=== PATIENT | female | born 1980 | race Caucasian/White ===

== ENCOUNTER 2019-09-01 08:55 | Emergency (ER) | payer BC, SELFPAY ==
--- NOTE | ~2019-09-01 | XR_ITS ---
EXAMINATION: XR chest 2V EXAM DATE: 09/01/2019 09:34 INDICATION: Chest pain, right upper quadrant pain. TECHNIQUE: Frontal and lateral projections of the chest obtained and reviewed. There is no prior josephine dy for comparison. FINDINGS: The lungs are clear. There are no pleural effusions. The cardiomediastinal silhouette is within normal limits. There is no pneumothorax suspected. The bones and soft tissues are unremarkab le. IMPRESSION: No acute cardiopulmonary findings. Reviewed, dictated and finalized at location B. T MANAGER
[2019-09-01 08:58] VITALS: BP 147/98; PULSE 90; RESP 18; TEMP 36.8; O2SAT 100
--- NOTE | 2019-09-01 09:02 | ECG_ITS ---
Measurements Intervals [place] Rate: 80 P: 56 DE: 145 QRS: 39 QRSD: 94 T: 15 QT: 355 QTc: 411 Interpretive Statements SINUS RHYTHM NORMAL ECG Electronically Signed On 09-01-2019 15:58:55 BASEBALL PITCHER by Justin Busch D.O.
--- NOTE | 2019-09-01 09:05 | ED.CHESTPAIN ---
HPI - Chest Pain General Chief Complaint: Chest Pain Stated Complaint: back pain/nausea Time Seen by Provider: 09/01/19 09:04 Source: patient Mode of arrival: ambulatory Limitations: no limitations History of Present Illness HPI narrative: Pt is a 38 y/o female who presents to the ED with c/o constant 6/10 rt CP that radiates from her rt shoulder and rt breast that woke her up this morning at 4AM. She reports associated nausea and sweats. Pt notes that she has been having sinus pressure and drainage for 6 days. She denies SOB or any relieving factors. complaint: chest pain Onset (ago): hour(s) (5) Timing of current episode: constant Pain location: right chest Pain radiation: right shoulder and other (rt breast) Pain scale (0-10): 6 Relieving factors: nothing Associated symptoms: nausea and diaphoresis Related Data Allergies Allergy/AdvReac Type Severity Reaction Status Date / Time Sulfa (Sulfonamide Allergy Intermediate Rash Verified 09/17/12 19:16 Antibiotics) Review of Systems Review of Systems: All systems reviewed & are unremarkable except as noted in HPI and below Constitutional: Constitutional: Reports other (sweats) ENT: Reports nasal discharge and Reports sinus pressure Cardiovascular: Cardiovascular: Reports chest pain Respiratory: Respiratory: Denies dyspnea Gastrointestinal: Gastrointestinal: Reports nausea Musculoskeletal: Musculoskeletal: Reports arthralgias (rt shoulder) [facility] Past Medical History Medical History (Updated 09/01/19 @ 10:29 by Neel Braun MD) HLD (hyperlipidemia) HTN (hypertension) Kidney stones Migraine Seasonal allergies Surgical History Surgical History (Updated 09/01/19 @ 09:38 by Aldo Sylvester) No significant past surgical history Social History Social History (Updated 09/01/19 @ 09:39 by Aldo Sylvester) Smoking status: Never smoker Exam Narrative: Exam Narrative: GENERAL: Well-appearing, well-nourished, and in no acute distress. HEAD: Normocephalic, atraumatic. EYES: PERRLA and EOMI. ENT: Nares clear, no rhinorrhea or epistaxis. Mucous membranes moist. NECK: Supple. CHEST: Clear to auscultation. No respiratory distress. HEART: Regular rate and rhythm. No murmur heard. Normal peripheral pulses. ABDOMEN: Soft, non tender, non distended, normal active bowel sounds. EXTREMITIES: Normal range of motion. No edema. SKIN: Warm, dry, no rash. NEURO: No focal deficits. Alert and oriented x3. PSYCH: Normal mood and affect. Course Course Emergency Course: Discussed lab, chest x-ray and EKG findings with the patient. At this time her pain appears to be more pleuritic in nature. Advised her to take naproxen as prescribed. She is not having any fever or chills and cough is nonproductive in nature it could be viral bronchitis Vital Signs Vital signs: Vital Signs Temperature 36.8 C 09/01/19 08:58 Pulse Rate 90 09/01/19 08:58 Respiratory Rate 18 09/01/19 08:58 Blood Pressure 147/98 H 09/01/19 08:58 Pulse Oximetry 100 09/01/19 08:58 Temperature 36.8 C 09/01/19 08:58 Pulse Rate 75 09/01/19 09:57 Respiratory Rate 15 09/01/19 09:57 Blood Pressure 140/88 09/01/19 09:57 Pulse Oximetry 100 09/01/19 09:57 MDM - Chest Pain Lab Data Result diagrams: 09/01/19 09:11 09/01/19 09:11 Labs: Lab Results 09/01/19 09/01/19 09/01/19 Range/Units 09:11 09:11 09:11 WBC 10.3 H (4.5-10.0) K/mm3 RBC 4.72 (4.2-5.4) M/mm3 Hgb 13.5 (12.0-15.0) g/dL Hct 40.8 (37.0-47.0) % MCV 86.4 (80-100) fl MCH 28.6 (26-34) pg MCHC 33.1 (32-36) g/dl RDW 12.7 (11.5-14.5) % Plt Count 274 (150-375) k/mm3 MPV 9.2 (7.4-10.4) fl Immature Gran % (Auto) 0.4 (0-0.5) % Neut % (Auto) 68.3 (45.5-73.1) % Lymph % (Auto) 24.2 (18.3-44.2) % Millard % (Auto) 5.0 (2.6-8.5) % Eos % (Auto) 1.5 (0-4.4) % Baso % (Auto) 0.6 (0.2-1.2) % Lymph # (Auto)
[2019-09-01] MEDS: ASPIRIN 81 MG CHEWABLE TABLET 324 MG PO (09:15)
[2019-09-01 09:17] LABS: Basophils Absolute Auto 0.1 K/mm3 (0.0-0.1); Basophils Percent Auto 0.6 % (0.2-1.2); Eosinophils Absolute Auto 0.2 K/mm3 (0-0.3); Eosinophils Percent Auto 1.5 % (0-4.4); Hematocrit 40.8 % (37.0-47.0); Hemoglobin 13.5 g/dL (12.0-15.0); Immature Granulocyte Absolute 0.04 K/mm3 (0.00-0.031); Immature Granulocyte Percent A 0.4 % (0-0.5); Lymphocytes Absolute Auto 2.48 K/mm3 (0.9-3.2); Lymphocytes Percent Auto 24.2 % (18.3-44.2); Mean Corpuscular HGB Conc 33.1 g/dl (32-36); Mean Corpuscular Hemoglobin 28.6 pg (26-34); Mean Corpuscular Volume 86.4 fl (80-100); Mean Platelet Volume 9.2 fl (7.4-10.4); Monocytes Absolute Auto 0.5 K/mm3 (0.1-0.6); Neutrophils Percent Auto 68.3 % (45.5-73.1); Platelet Count Result 274 k/mm3 (150-375); Red Blood Count 4.72 M/mm3 (4.2-5.4); Red Cell Distribution Width 12.7 % (11.5-14.5); White Blood Count 10.3 K/mm3 (4.5-10.0)
[2019-09-01 09:28] LABS: Partial Thromboplastin Time 28.4 SECONDS (22.3-36.8); Prothrombin Time 12.4 Seconds (11.1-14.7)
[2019-09-01 09:29] LABS: Blood Urea Nitrogen 17 mg/dL (7-17); Calcium 9.2 mg/dL (8.4-10.2); Carbon Dioxide 27 mmol/L (22-30); Chloride 100 mmol/L (98-107); Estimated CRCL calculation 83 ml/min; Estimated Glomerular Filt Rate > 60; Glucose 99 mg/dL (65-105); Sodium 138 mmol/L (137-145)
[2019-09-01 09:40] LABS: Troponin I < 0.012 ng/mL (0.000-0.034)
[2019-09-01 09:57] VITALS: BP 140/88; PULSE 75; RESP 15; O2SAT 100
[2019-09-01 10:43] VITALS: BP 134/80; PULSE 78; RESP 19; O2SAT 98
== END 2019-09-01 11:05 | disposition home or self-care (01) ==
PROVIDERS: Emergency Provider Family Medicine
DX: R07.89 Other chest pain (principal); E78.5 Hyperlipidemia, unspecified; I10 Essential (primary) hypertension; Z87.442 Personal history of urinary calculi
CPT/HCPCS: 36415; 71046; 80048; 84484; 85025; 85610; 85730; 93005; 99284; A9270

== ENCOUNTER 2019-12-13 13:16 | Outpatient (CLI) | payer BC, SELFPAY | END 2019-12-13 13:17 | disposition home or self-care (01) | PROVIDERS: Visit Provider Dietitian, Registered | DX: Z00.00 Encounter for general adult medical examination without abnormal findings (principal); K58.9 Irritable bowel syndrome, unspecified | CPT/HCPCS: 36415 ==

== ENCOUNTER 2021-09-03 12:37 | Outpatient (CLI) | payer BC, SELFPAY ==
--- NOTE | ~2021-09-03 | MR_ITS ---
EXAMINATION: MR cervical spine wo con DATE: 09/03/2021 14:08 INDICATION: Neck pain. TECHNIQUE: Magnetic resonance imaging (MRI) of the cervical spine was performed without intravenous c ontrast. Sequences included sagittal T2-weighted FSE, sagittal T2-weighted FS FSE, sagittal T1-weight ed FSE, axial MERGE, and axial T2-weighted FSE. COMPARISON: None FINDINGS: Bone alignment is normal. Vertebral body heights are normal. There is mildly decreased disc height at C5-C6. The spinal cord signal intensity is normal. The following disc levels are specifica lly discussed: C2-C3: The disc does not extend beyond the endplate margin. There is no uncovertebral joint osteoarth ritis. There is no facet joint osteoarthritis. There is no neural foraminal stenosis. There is no marvin tral canal stenosis. C3-C4: The disc does not extend beyond the endplate margin. There is no uncovertebral joint osteoarth ritis. There is no facet joint osteoarthritis. There is no neural foraminal stenosis. There is no marvin tral canal stenosis. C4-C5: The disc does not extend beyond the endplate margin. There is mild left uncovertebral joint os teoarthritis. There is no facet joint osteoarthritis. There is no neural foraminal stenosis. There is no central canal stenosis. C5-C6: The disc is bulging. There is mild bilateral uncovertebral joint osteoarthritis. There is no f acet joint osteoarthritis. There is mild bilateral neural foraminal stenosis. There is mild central c anal stenosis. C6-C7: There is a central extrusion. There is mild left uncovertebral joint osteoarthritis. There is no facet joint osteoarthritis. There is no neural foraminal stenosis. There is mild central canal brayan nosis. C7-T1: The disc does not extend beyond the endplate margin. There is no uncovertebral joint osteoarth ritis. There is mild bilateral facet joint osteoarthritis. There is no neural foraminal stenosis. The re is no central canal stenosis. IMPRESSION: 1. Mild cervical spondylosis. Reviewed, dictated and finalized at location A. PIPELINE DISPATCHER
--- NOTE | ~2021-09-03 | MR_ITS ---
EXAMINATION: MR brain/brain stem wo con DATE: 09/03/2021 13:42 INDICATION: Nonintractable headache, unspecified. Neck pain. TECHNIQUE: Magnetic resonance imaging (MRI) of the brain and brainstem was performed without intraven ous contrast. Sequences included sagittal and axial T1-weighted FSE, axial diffusion-weighted FS EPI, axial T2*-weighted GRE, axial T2-weighted FLAIR Propeller, and axial T2-weighted Propeller. Apparent diffusion coefficient (ADC) maps were created. COMPARISON: None. FINDINGS: There is no intracranial hemorrhage, acute infarction, or abnormal intracranial mass lesion . The ventricles are normal in size. The mastoid air cells are normal. The orbits are normal. There i s mucosal thickening in the paranasal sinuses. IMPRESSION: 1. Normal brain. Reviewed, dictated and finalized at location A. RATION OPERATOR IMPRESSION: 1. Normal brain.
--- NOTE | ~2021-09-03 | MR_ITS ---
EXAMINATION: MR shoulder LT wo con DATE: 09/03/2021 14:26 INDICATION: Left shoulder pain, unspecified. TECHNIQUE: Magnetic resonance imaging (MRI) of the left shoulder was performed without intravenous co ntrast. Sequences included axial PD-weighted FS FSE, coronal oblique PD-weighted FS FSE and T2-weight ed FS FSE, and sagittal oblique T2-weighted FS FSE and T1-weighted FSE. COMPARISON: None. FINDINGS: Coracoacromial arch: The acromion undersurface is flat in morphology (type I). There is mild acromioclavicular joint osteo arthritis. There is mild subacromial/subdeltoid bursitis. Rotator cuff: There is mild supraspinatus and infraspinatus tendinopathy. Teres minor tendon is normal. Subscapular is tendon is normal. No tear. There is no asymmetric fatty atrophy of the rotator cuff muscle bellies . Biceps tendon and glenoid labrum: Biceps tendon is in bicipital groove. Intra-articular biceps tendon is normal. The glenoid labrum is normal. Fluid: There is no glenohumeral joint effusion. Bones/cartilage: Glenoid cartilage is normal. Humeral head cartilage is normal. IMPRESSION: 1. Mild rotator cuff tendinopathy. No tear. 2. Mild subacromial/subdeltoid bursitis. 3. Mild acromioclavicular joint osteoarthritis. Reviewed, dictated and finalized at location A. E RIDE OPERATOR
== END 2021-09-03 12:38 | disposition home or self-care (01) ==
DX: M54.2 Cervicalgia (principal); M25.512 Pain in left shoulder; R51.9 Headache, unspecified; M75.82 Other shoulder lesions, left shoulder; M75.52 Bursitis of left shoulder; M19.012 Primary osteoarthritis, left shoulder; M47.812 Spondylosis without myelopathy or radiculopathy, cervical region
CPT/HCPCS: 70551; 72141; 73221